=== PATIENT | female | born 1950 | race Asian ===

== ENCOUNTER 2018-08-07 12:24 | Emergency (ER) | payer OTHER ==
[~2018-08-07] VITALS: Ht 170.2 cm; Wt 72.6 kg
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
[2018-08-07] MEDS ORDERED: SIMV10TA6 PO (12:35)
[2018-08-07] MEDS ORDERED: ALEN70TA3 PO (12:35)
[2018-08-07] MEDS ORDERED: MORPHINE SULFATE INJ 4 MG/ML DISP.SYRIN ONE ×2 (12:55→14:24)
[2018-08-07] MEDS ORDERED: ONDANSETRON HCL/PF 4 MG/2 ML VIAL ONE (12:55)
[2018-08-07 12:59] LABS: BASOPHILS # (AUTO) 0.1 /CMM (0.0-0.2); BASOPHILS % (AUTO) 0.8 % (0.0-2.0); EOSINOPHILS % (AUTO) 2.8 % (0.0-6.0); HEMATOCRIT 43 % (33-45); HEMOGLOBIN 14.4 g/dL (11.5-14.8); LYMPHOCYTES # (AUTO) 1.8 /CMM (0.8-4.8); LYMPHOCYTES % (AUTO) 26.9 % (20.0-44.0); MEAN CORPUSCULAR HGB CONC 34 g/dl (31.0-36.0); MEAN CORPUSCULAR VOLUME 95 fL (82-100); MONOCYTES # (AUTO) 0.5 /CMM (0.1-1.30); NEUTROPHILS # (AUTO) 4.3 /CMM (1.8-8.9); NEUTROPHILS % (AUTO) 62.5 % (43.0-81.0); PLATELET COUNT (AUTO) 270 /CMM (150-450); WHITE BLOOD COUNT (AUTO) 6.9 K/uL (4.3-11.0)
[2018-08-07 13:12] LABS: CARBON DIOXIDE 26 mmol/L (21-32); CHLORIDE 103 mmol/L (98-107); CREATININE 0.8 mg/dL (0.6-1.3); GLUCOSE 108 mg/dL (74-106); SODIUM SERUM 139 mmol/L (136-145); UREA NITROGEN, BLOOD 17 mg/dL (7-18)
[2018-08-07] MEDS: ONDANSETRON HCL/PF 4 MG/2 ML VIAL IVP ONE (13:15)
[2018-08-07] MEDS: MORPHINE SULFATE INJ 2 MG/ML DISP.SYRIN IV ONE ×2 (13:15→14:26)
[2018-08-07 13:18] LABS: ALANINE AMINOTRANSFERASE 34 U/L (12-78); ALBUMIN 3.9 g/dL (3.4-5.0); ALKALINE PHOSPHATASE 58 U/L (46-116); ASPARTATE AMINOTRANSFERASE 27 U/L (15-37); BILIRUBIN,DIRECT 0.1 mg/dL (0.0-0.2); BILIRUBIN,TOTAL 0.3 mg/dL (0.2-1.0); TOTAL PROTEIN, SERUM 8.8 g/dL (6.4-8.2)
[2018-08-07] MEDS ORDERED: IOHEXOL-300 100 ML VIAL IV ONE (13:30)
[2018-08-07] MEDS ORDERED: CT SWABBABLE VALVE TRANS SET 1 EA INFUS.SET MC ONE (13:30)
[2018-08-07] MEDS ORDERED: IV NS 0.9% 250 ML IV ONE (13:30)
--- NOTE | 2018-08-07 14:37 | NUR ---
PER [employer] SPECIALIST INSTRUCTIONS FOR ER MD TO CALL FOR MD-MD FOR PT [phone]
--- NOTE | 2018-08-07 14:49 | NUR ---
PER DR. ANAND; PT IS ACCEPTED BY DR ISRAEL IN [facility], AWAITING TRANSFER INFO.
--- NOTE | 2018-08-07 16:19 | NUR ---
NO UPDATE FOR PT TRANSFER INFO PER ADMITTING
[2018-08-07 16:20] VITALS: BP 135/62
--- NOTE | 2018-08-07 16:30 | NUR ---
received a call from Leobardo ([facility]) preferred IPA patient is going to room 526 (for report)
--- NOTE | 2018-08-07 17:02 | NUR ---
ES ALS TO [facility] TO ROOM 526 ETA [id number]
--- NOTE | 2018-08-07 17:03 | NUR ---
REPORT GIVEN TO OLGA BOWMAN AT [facility]; [facility].
--- NOTE | 2018-08-07 17:39 | NUR ---
ES [place] [address] TRIP # [id number]
--- NOTE | 2018-08-07 18:25 | NUR ---
REPORT GIVEN TO [facility]. PT IS BEING TRANSPORTED OUT VIA AMBULANCE. VSS
== END 2018-08-07 18:28 ==
LOC: ER 12:29
DX: S22.42XA Multiple fractures of ribs, left side, initial encounter for closed fracture (principal); S22.20XA Unspecified fracture of sternum, initial encounter for closed fracture; Z98.890 Other specified postprocedural states; V49.59XA Passenger injured in collision with other motor vehicles in traffic accident, initial encounter; Y93.89 Activity, other specified; Y92.410 Unspecified street and highway as the place of occurrence of the external cause; Y99.8 Other external cause status
CPT/HCPCS: 36415; 71260; 74177; 80048; 80076; 84484; 85025; 85730; 86850; 93005; 96374; 96375; 96376; 99285; J2270 ×2; J2405; J7030; J7050; Q9967